=== PATIENT | male | born 1980 | race Caucasian/White ===

== ENCOUNTER 2025-01-21 08:45 | Emergency (ER) | payer MEDICAID ==
[~2025-01-21] VITALS: Ht 165.1 cm; Wt 72.0 kg
[2025-01-21 08:50] VITALS: TEMP 36.7; O2SAT 100
[2025-01-21 08:53] VITALS: O2SAT 99
[2025-01-21] MEDS ORDERED: T3 PO (10:28)
[2025-01-21] MEDS ORDERED: AMOX1TAB16 MT (10:28)
[2025-01-21 10:36] VITALS: BP 108/78; PULSE 68; RESP 16; TEMP 98.1
[2025-01-21] MEDS: KETOROLAC 15MG/ML VIAL IM ONE (10:36)
[2025-01-21] MEDS: ACETAMINOPHEN 325MG TABLET PO ONE (10:36)
== END 2025-01-21 11:16 | disposition home or self-care (01) ==
LOC: ER 08:45
DX: H72.91 Unspecified perforation of tympanic membrane, right ear (principal); L29.9 Pruritus, unspecified
CPT/HCPCS: 99283; 96372; J1885